=== PATIENT | female | born 1970 | race Asian ===

== ENCOUNTER 2023-05-24 06:13 | Emergency (ER) | payer OTHER, SELFPAY ==
[2023-05-24 06:20] VITALS: BP 118/77; PULSE 90; RESP 16; TEMP 36.6; O2SAT 97; BMI 24.2
--- NOTE | 2023-05-24 07:04 | CRLHL7_ITS ---
For Patients: As a result of the Cures Act, medical imaging exams and procedure reports are released immediately into your electronic medical record. You may view this report before your referring provider. If you have questions, please contact your health care provider. Indication: INJURY; DISTAL PHALANX SWELLING Technique: Right 3rd digit, 3 views. Comparison: None. Impression: Severe soft tissue swelling involving the 3rd distal phalanx. No evidence of fracture. No radiopaque foreign body. Dictated by Onesimo Lynch MD @ 05/24/2023 7:56:48 AM (Electronically Signed)
--- NOTE | 2023-05-24 07:29 | ED.GENADULT ---
HPI - General Adult General Date Seen: 05/24/23 Chief complaint: Extremity Pain/Injury, Upper Stated complaint: Finger injury Time Seen by Provider: 05/24/23 07:20 Source: patient Mode of arrival: ambulatory Limitations: no limitations History of Present Illness HPI narrative: Patient is a 52-year-old female who works at [employer]. She scraped her right 3rd finger and hand on a hard piece of plastic two weeks ago. She sustained a cut on the dorsum of the hand and she did open this up herself and drained some pus a few days ago. She attempted to poke a hole in the tip of her right 3rd finger to release the pressure but did not get anything out. The swelling has continued to worsen as has the pain. She has had no fevers. No spontaneous drainage. Related Data Previous Rx's Medication Instructions Recorded cephalexin 500 mg capsule 500 mg PO TID #30 caps 05/24/23 Allergies Allergy/AdvReac Type Severity Reaction Status Date / Time No Known Drug Allergies Allergy Verified 05/24/23 06:22 Review of Systems Narrative: Review of systems is outlined above otherwise noted to be negative. PFSH PFSH Social History Smoking Status: Never smoker How often do you have a drink containing alcohol: never AUDIT-C Alcohol total score: 0 Non-prescribed substance use: denies use Exam Narrative: Exam Narrative: Vitals noted. On exam there is significant soft tissue swelling of the pulp of the right 3rd finger. No bony tenderness. There is a shallow abrasion on the dorsum of the hand near the 3rd MCP joint. There is firm swelling of the tip of the finger with tenderness to palpation. There is no purulence visualized at the surface. No purulence around the nail. No redness or lymphangitic streaking. Const: Vital Signs, click to edit/add: Vital Signs - 24 hr 05/24/23 06:20 Temperature 97.9 F Pulse Rate [Pulse Oximeter] 90 Respiratory Rate 16 Blood Pressure [Ri ght Upper Arm] 118/77 Pulse Oximetry 97 Oxygen Delivery Me thod Room Air Course Course ED Course: Patient was seen and examined. X-ray of the finger is normal. She has fairly significant swelling but no area of purulence. This appears to be a felon. We discussed risks and benefits of opening this area and she is definitely in favor of an incision and drainage. She is certain that her tetanus status is up-to-date. Reevaluation(s) Reevaluation #1: Without anesthesia I used a #11 blade to make a small incision deep into the most swollen area of the finger. About 1 mL of pus was removed. She had some immediate pain relief. The wound is than cleaned up and dressed. Vital Signs Vital signs: Initial Vital Signs Temperature 97.9 F 05/24/23 06:20 Temperature Source Temporal Artery Scan 05/24/23 06:20 Pulse Rate 90 05/24/23 06:20 Respiratory Rate 16 05/24/23 06:20 Blood Pressure 118/77 05/24/23 06:20 Blood Pressure Mean 90 05/24/23 06:20 Blood Pressure Position Sitting 05/24/23 06:20 Pulse Oximetry 97 05/24/23 06:20 Oxygen Delivery Method Room Air 05/24/23 06:20 Vital Signs Temperature 97.9 F 05/24/23 06:20 Pulse Rate 90 05/24/23 06:20 Respiratory Rate 16 05/24/23 06:20 Blood Pressure 118/77 05/24/23 06:20 Pulse Oximetry 97 05/24/23 06:20 Oxygen Delivery Method Room Air 05/24/23 06:20 Temperature 97.9 F 05/24/23 06:20 Pulse Rate 90 05/24/23 06:20 Respiratory Rate 16 05/24/23 06:20 Blood Pressure 118/77 05/24/23 06:20 Pulse Oximetry 97 05/24/23 06:20 Oxygen Delivery Method Room Air 05/24/23 06:20 Discharge Plan Discharge Clinical Impression: Felon of finger Patient Disposition: Home, Self-Care Condition: Improved Additional Instructions: No work today. Keep wound clean and protected. Soak in warm soapy water 2-3 times daily. Gently pull the caught up part until all the swelling and pus are gone. Continue ibuprofen 600 mg 3 times daily. Start Keflex 500 mg 3 times daily for 10 days. Follow-up in the clinic if not significantly improved over the next 2-3 days. Prescriptions: New cephalexin 500 mg capsule 500 mg PO TID Qty: 30 0RF Follow Up/Referrals: Provider,Not a Local [Primary Care Provider] - Stand Alone Forms: MyHealth Info Instructions
== END 2023-05-24 08:04 | disposition home or self-care (01) ==
PROVIDERS: Emergency Provider Family Medicine
DX: L03.011 Cellulitis of right finger (principal)
CPT/HCPCS: 26010; 73140; 99282; 99283